=== PATIENT | female | born 1940 | race Caucasian/White ===

== ENCOUNTER 2017-11-02 11:45 | Emergency (ER) | payer OTHER ==
[2017-11-02 12:00] VITALS: BP 120/71; PULSE 74; TEMP 98.6; BMI 22.2
[2017-11-02] MEDS ORDERED: PHENAZOPYRIDINE HCL 100 MG TABLET (FP) PO ONE (12:27)
[2017-11-02] MEDS ORDERED: PHENAZOPYRIDINE HCL 100 MG TABLET (FP) ONE (12:27)
--- NOTE | 2017-11-02 12:29 | PDOC ---
History of Present Illness - General Chief Complaint: Urinary Problem Stated Complaint: POSSIBLE UTI Time Seen by Provider: 11/02/17 12:06 History Source: Patient Exam Limitations: No Limitations - History of Present Illness Travel History: No Initial Comments: 11/02/17 12:26 77 yr female with c/o 2 days urgency frequency and dysuria for 2 days. no feve no abd pain neg nvd. pt has had same symptoms in the past. Past History - Past Medical History Allergies/Adverse Reactions: Allergies Allergy/AdvReac Type Severity Reaction Status Date / Time No Known Allergies Allergy Verified 11/02/17 12:00 Home Medications: Ambulatory Orders Aspirin [ASA -] 81 mg PO DAILY #0 tab.chew 11/14/11 Timolol Maleate 15 ml OP DAILY 11/15/15 Cephalexin [Keflex] 500 mg PO BID #6 capsule 11/02/17 Phenazopyridine HCl [Pyridium] 200 mg PO TID #6 tablet 11/02/17 Simvastatin 20 mg PO ASDIR 11/02/17 Anemia: No Asthma: No Cancer: No Cardiac Disorders: No CVA: No COPD: No CHF: No Dementia: No Diabetes: No GI Disorders: Yes (HEMORRHIODS, DIVERTIUCLOSIS, POLYPS) Disorders: Yes (chronic UTI) HTN: No Hypercholesterolemia: Yes Liver Disease: No Seizures: No Thyroid Disease: No - Surgical History Abdominal Surgery: No Appendectomy: No Cardiac Surgery: No Cholecystectomy: No Lung Surgery: No Neurologic Surgery: No Orthopedic Surgery: No - Suicide/Smoking/Psychosocial Hx Smoking History: Never smoked Have you smoked in the past 12 months: No Hx Alcohol Use: No Drug/Substance Use Hx: No Substance Use Type: None Hx Substance Use Treatment: No Review of Systems - Review of Systems Able to Perform ROS?: Yes Is the patient limited Sammarinese proficient: No Constitutional: No: Symptoms Reported HEENTM: No: Symptoms Reported Respiratory: No: Symptoms reported Cardiac (ROS): No: Symptoms Reported ABD/GI: No: Symptoms Reported : Yes: Symptoms Reported Musculoskeletal: No: Symptoms Reported Integumentary: No: Symptoms Reported Neurological: No: Symptoms reported *Physical Exam - Vital Signs Last Vital Signs Temp Pulse Resp BP Pulse Ox 98.6 F 74 18 120/71 99 11/02/17 11:58 11/02/17 11:58 11/02/17 11:58 11/02/17 11:58 11/02/17 11:58 - Physical Exam General Appearance: Yes: Nourished, Appropriately Dressed HEENT: positive: EOMI, SHANNAN Gastrointestinal/Abdominal: positive: Normal Bowel Sounds, Flat, Soft, Tenderness (suprapubic ) Medical Decision Making - Medical Decision Making 11/02/17 12:27 cc: dysuria, urgency, frequency will send cultures treat for UTI *DC/Admit/Observation/Transfer Diagnosis at time of Disposition: Urinary tract infection Qualifiers: Urinary tract infection type: acute cystitis Hematuria presence: with hematuria Qualified Code(s): N30.01 - Acute cystitis with hematuria - Discharge Dispostion Disposition: HOME Condition at time of disposition: Good - Prescriptions Prescriptions: Cephalexin [Keflex] 500 mg PO BID #6 capsule Phenazopyridine HCl [Pyridium] 200 mg PO TID #6 tablet - Referrals Referrals: Rani Baugh MD [Primary Care Provider] - - Patient Instructions Printed Discharge Instructions: DI for Urinary Tract Infection (UTI) Additional Instructions: drink pleanty of water take the medications as prescribed follow with your doctor for follow up in one week or if any worsening symptoms - Post Discharge Activity
[2017-11-02 12:41] LABS: URINE APPEARANCE SLCLOUDY; URINE BILIRUBIN NEGATIVE (<2.0 mg/dL); URINE BLOOD 2+ (NEGATIVE); URINE COLOR LTYELLOW; URINE GLUCOSE (UA) NEGATIVE (NEGATIVE); URINE KETONE NEGATIVE (NEGATIVE); URINE NITRITE NEGATIVE (NEGATIVE); URINE PROTEIN NEGATIVE (NEGATIVE); URINE UROBILINOGEN NEGATIVE mg/dL (0.2-1.0)
[2017-11-02 12:46] LABS: URINE LEUK ESTERASE 3+ (NEGATIVE)
[2017-11-02 12:47] LABS: URINE MUCUS RARE
--- NOTE | 2017-11-04 07:20 | PDOC ---
Patient Follow-up (Call Back) - Post ED Follow - Up Condition at time of discharge: Good Disposition at time of original discharge: HOME Reason for Call Back: Abnwl. Microbiology (Urine cx preliminary shows lactose fermenting - bacilli. Pt on keflex. will await final report.)
== END 2017-11-02 13:26 | disposition home or self-care (01) ==
LOC: JERFT 11:45
DX: N30.01 Acute cystitis with hematuria (principal); E78.00 Pure hypercholesterolemia, unspecified; Z87.19 Personal history of other diseases of the digestive system
CPT/HCPCS: 81003; 81015; 87086; 87186; 99281-25

== ENCOUNTER 2020-02-05 16:23 | Inpatient (IN) | payer OTHER ==
[2020-02-05] MEDS ORDERED: ACETAMINOPHEN 500 MG TABLET (FP) PO ONE (17:02)
[2020-02-05] MEDS ORDERED: ACETAMINOPHEN 500 MG TABLET (FP) ONE (17:04)
--- NOTE | 2020-02-05 17:09 | PDOC ---
History of Present Illness - General Chief Complaint: Pain Stated Complaint: FALL Time Seen by Provider: 02/05/20 16:37 History Source: Patient Exam Limitations: No Limitations - History of Present Illness Initial Comments: 02/05/20 17:05 HISTORY OF PRESENT ILLNESS: 79-year-old woman presents emergency department for evaluation of left hip pain status post fall onto concrete. Patient reports she was shopping when something tipped over in her shopping cart causing her to grab onto the falling object knocking her to the ground and landing on her left hip and left elbow. Patient initially had no pain but now reports difficulty in ambulation. She reports the pain got worse after sitting in a car. No recent travel or sick contacts. PAST MEDICAL HISTORY: Denies past medical history SURGICAL HISTORY: Denies ALLERGIES: No known drug allergies REVIEW OF SYSTEMS General/Constitutional: Denies fever or chills. Denies weakness, weight change. HEENT: Denies change in vision. Denies ear pain or discharge. Denies sore throat. Cardiovascular: Denies chest pain or shortness of breath. Respiratory: Denies cough, wheezing, or hemoptysis. Gastrointestinal: Denies nausea, vomiting, diarrhea or constipation. Denies rectal bleeding. Genitourinary: Denies dysuria, frequency, or change in urination. Musculoskeletal: See HPI Skin and breasts: Denies rash or easy bruising. Neurologic: Denies headache, vertigo, loss of consciousness, or loss of sensation. Psychiatric: Denies depression or anxiety. Endocrine: Denies increased thirst. Denies abnormal weight change. Hematologic/Lymphatic: Denies anemia, easy bleeding, or history of blood clots. Allergic/Immunologic: Denies hives or skin allergy. Denies latex allergy. PHYSICAL EXAM General Appearance: Well-appearing, appropriately dressed. No apparent distress, no intoxication. Vascular Pulses: Dorsalis-Pedis (R): 2+, Dorsalis-Pedis (L): 2+ Musculoskeletal/Extremities: Normal inspection. Normal capillary refill. Pe lvis Stable. No CVA tenderness. No tenderness to extremities, pedal edema, swelling, erythema or deformity. Neurovascularly intact. Integumentary: Appropriate color, dry, warm. No cyanosis, erythema, jaundice or rash Past History - Medical History Allergies/Adverse Reactions: Allergies Allergy/AdvReac Type Severity Reaction Status Date / Time No Known Allergies Allergy Verified 02/05/20 16:36 Home Medications: Ambulatory Orders Timolol Maleate 15 ml OP DAILY 11/15/15 Simvastatin 20 mg PO ASDIR 11/02/17 Acetaminophen [Tylenol .Regular Strength -] 650 mg PO Q4H PRN tablet 02/07/20 Lidocaine 5% Patch [Lidoderm -] 1 patch TP DAILY #2 patch 02/07/20 Anemia: No Asthma: No Cancer: No Cardiac Disorders: No CVA: No COPD: No CHF: No Dementia: No Diabetes: No GI Disorders: Yes (HEMORRHIODS, DIVERTIUCLOSIS, POLYPS) Disorders: Yes (chronic UTI) HTN: No Hypercholesterolemia: Yes Liver Disease: No Seizures: No Thyroid Disease: No - Surgical History Abdominal Surgery: No Appendectomy: No Cardiac Surgery: No Cholecystectomy: No Lung Surgery: No Neurologic Surgery: No Orthopedic Surgery: No - Psycho-Social/Smoking History Smoking History: Never smoked Have you smoked in the past 12 months: No *Physical Exam - Vital Signs Last Vital Signs Temp Pulse Resp BP Pulse Ox 72 18 106/64 98 02/05/20 16:31 02/05/20 16:31 02/05/20 16:31 02/05/20 16:31 ED Treatment Course - LABORATORY CBC & Chemistry Diagram: 02/06/20 05:55 02/06/20 05:55 - RADIOLOGY Radiology Studies Ordered: Category Date Time Status HIP & PELVIS-LEFT [RAD] Stat Radiology 02/05/20 17:02 Ordered Medical Decision Making - Medical Decision Making 02/05/20 17:07 A/P: 79-year-old woman with left hip pain status post fall on concrete today No bony tenderness, deformity, crepitus or step-off is appreciated on palpation. Unable to bear weight on affected leg X-rays to rule out fracture Tylenol 1 g orally now Reassess 02/05/20 20:42 CT scan is read by imaging on-call: Fractures of the left superior and inferior pubic rami with adjacent soft tissue swelling. There are additional soft tissue inflammation changes lateral to the proximal left femur. Dedicated pelvic CT is recommended for complete evaluation of the pelvis. Diffuse degenerative changes. Colonic diverticula As patient is nonweightbearing I will admit the patient for orthopedic consultation in the morning and physical therapy evaluation. Dr. Espitia, the patient's primary doctor states she is not admitting to this hospital for the time being I should contact hospitalist. Microblog has been sent. 02/05/20 21:14 Case has been discussed with the hospitalist resident. Signout is been given the patient cannot be admitted until laboratory testing has been resulted. Patient to be admitted under Dr. Bobby to observation. Discharge - Discharge Information Problems reviewed: Yes Clinical Impression/Diagnosis: Fall Qualifiers: Encounter type: initial encounter Qualified Code(s): W19.XXXA - Unspecified fall, initial encounter Fracture of pubic ramus Qualifiers: Encounter type: initial encounter Laterality: left Condition: Stable - Admission Yes - Follow up/Referral - Patient Discharge Instructions - Post Discharge Activity
--- NOTE | 2020-02-05 22:13 | PN ---
Teaching Attending Note Name of Resident: Kojo Do ATTENDING PHYSICIAN STATEMENT I saw and evaluated the patient. I reviewed the resident's note and discussed the case with the resident. I agree with the resident's findings and plan as documented. SUBJECTIVE: 79yoF presents with history of HLD and glaucoma presents wtih left hip/leg pain and difficulty ambulating after a fall. She fell onto her left side while trying to prevent a heavy plant from falling. She was able to ambulate immediately afterwards with some discomfort but when she tried to walk down some steps the pain became unbearable so she presented to the ED. Denies head trauma, syncope. XR of the pelvis showed no acute findings but CT of the left leg was obtained due to continued pain and inability to bear weight showing left superior and inferior pubic rami fractures. Admitted for further management. OBJECTIVE: Vital Signs - 24 hr 02/05/20 16:31 Pulse Rate 72 Respiratory 18 Rate Blood Pressure 106/64 O2 Sat by Pulse 98 Oximetry (%) EXAM Gen: awake, alert, NAD CV: RRR, no MRG Resp: unlabored, CTAB Abd: Soft, NT, ND Ext: legs equal length. Left proximal movement limited by pain in hip/groin. Neuro: sensation intact, CN II-XII grossly intact Psych: AOx3, appropriate mood/affect Laboratory Results - last 24 hr 02/05/20 02/05/20 20:30 20:30 WBC 6.4 RBC 4.39 Hgb 12.2 Hct 37.4 MCV 85.2 MCH 27.8 MCHC 32.6 RDW 14.1 Plt Count 162 MPV 9.4 Absolute Neuts (auto) 4.3 Neutrophils % 66.6 Lymphocytes % 21.2 Monocytes % 8.6 Eosinophils % 2.5 Basophils % 1.1 Nucleated RBC % 0 Platelet Estimate Adequate Platelet Comment No clumping noted Sodium 139 Potassium 3.9 Chloride 105 Carbon Dioxide 28 Anion Gap 6 L BUN 16.2 Creatinine 0.7 Est GFR (CKD-EPI)AfAm 96.86 Est GFR (CKD-EPI)NonAf 83.57 Random Glucose 103 Calcium 9.6 Total Bilirubin 0.7 AST 20 ALT 23 Alkaline Phosphatase 70 Total Protein 7.0 Albumin 4.0 Imaging reviewed in chart ASSESSMENT AND PLAN: 79yoF presents with history of HLD and glaucoma presents wtih left hip/leg pain and difficulty ambulating after a fall, found to have pubic rami fractures. Left superior and inferior pubic rami fractures s/p mechanical fall - ortho consult in AM - further imaging deferred to ortho - pain control with Tylenol, lidocaine patches - PT consult HLD, glaucoma - continue home meds DVT ppx: Lovenox subq
[2020-02-05 22:54] LABS: BASO % 1.1 % (0-2.0); EOS % 2.5 % (0-4.5); HEMATOCRIT 37.4 % (32.4-45.2); HEMOGLOBIN 12.2 GM/dL (10.7-15.3); LYMPH % 21.2 % (8-40); MCH 27.8 pg (25.7-33.7); MCHC 32.6 g/dl (32.0-36.0); MEAN CELL VOLUME 85.2 fl (80-96); MONO % 8.6 % (3.8-10.2); NEUT % 66.6 % (42.8-82.8); RBC 4.39 M/mm3 (3.60-5.2); RDW 14.1 % (11.6-15.6); WHITE BLOOD COUNT 6.4 K/mm3 (4.0-10.0)
--- NOTE | 2020-02-05 23:15 | HP ---
CHIEF COMPLAINT: L hip pain PCP: Dr. Espitia HISTORY OF PRESENT ILLNESS: 79 y/o female with PMX of hyperlipidemia and glaucoma presenting to the ED for evaluation of L hip pay s/p fall onto concrete ground. Patient reports that she was shopping at [employer] when she went to grab a plant that was falling and lost her balance and fell onto the ground landing on her L hip and L elbow. Initially, the patient had no pain but now endorses difficulty with ambulating and with sitting. ER course was notable for: (1)CXR- no acute pathology (2)Lower Extremity CT- comminuted minimally displaced fracture involving the left supers pubic ramus, medial as well as the left inferior pubic ramus. The left hip joint is intact without gross evidence of fracture. However, note is made of the adjacent subcutaneous edema, laterally likely post traumatic. Diverticulosis coli in the mid sigmoid colon w/o evident of acute diverticulitis (3)Hip/pelvis x-ray- no acute pathology of the pelvis or L hip Recent Travel: PAST MEDICAL HISTORY: HLD, glaucoma PAST SURGICAL HISTORY: ovarian removal, 2 c-sections Social History: Smoking:denies Alcohol:occasional Drugs: denies Allergies No Known Allergies Allergy (Verified 02/05/20 16:36) HOME MEDICATIONS: Home Medications Medication Instructions Recorded Aspirin [ASA -] 81 mg PO DAILY #0 tab.chew 11/14/11 Timolol Maleate 15 ml OP DAILY 11/15/15 Cephalexin [Keflex] 500 mg PO BID #6 capsule 11/02/17 Phenazopyridine HCl [Pyridium] 200 mg PO TID #6 tablet 11/02/17 Simvastatin 20 mg PO ASDIR 11/02/17 REVIEW OF SYSTEMS CONSTITUTIONAL: Absent: fever, chills, diaphoresis, generalized weakness, malaise, loss of appetite, weight change HEENT: Absent: rhinorrhea, nasal congestion, throat pain, throat swelling, difficulty swallowing, mouth swelling, ear pain, eye pain, visual changes CARDIOVASCULAR: Absent: chest pain, syncope, palpitations, irregular heart rate, lightheadedness, peripheral edema RESPIRATORY: Absent: cough, shortness of breath, dyspnea with exertion, orthopnea, wheezing, stridor, hemoptysis GASTROINTESTINAL: Absent: abdominal pain, abdominal distension, nausea, vomiting, diarrhea, constipation, melena, hematochezia GENITOURINARY: Absent: dysuria, frequency, urgency, hesitancy, hematuria, flank pain, genital pain MUSCULOSKELETAL: + arthralgia, + left hip pain Absent: myalgia, joint swelling, back pain, neck pain SKIN: + bruise on left elbow Absent: rash, itching, pallor HEMATOLOGIC/IMMUNOLOGIC: Absent: easy bleeding, easy bruising, lymphadenopathy, frequent infections ENDOCRINE: Absent: unexplained weight gain, unexplained weight loss, heat intolerance, cold intolerance NEUROLOGIC: Absent: headache, focal weakness or paresthesias, dizziness, unsteady gait, seizure, mental status changes, bladder or bowel incontinence PSYCHIATRIC: Absent: anxiety, depression, suicidal or homicidal ideation, hallucinations. PHYSICAL EXAMINATION Vital Signs - 24 hr 02/05/20 16:31 Pulse Rate 72 Respiratory 18 Rate Blood Pressure 106/64 O2 Sat by Pulse 98 Oximetry (%) GENERAL: AAOx3, in no acute distress HEENT: NCAT, PERRLA, EOMI, sclera anicteric, conjunctiva clear, oropharynx clear w/o exudates. MMM. NECK: Normal ROM, supple, no lymphadenopathy, JVD, or masses LUNGS: CTABL no wheezes/ rhonchi/ rales. No distress, speaks in full sentences. No increased work of breathing. HEART: RRR, normal S1 S2, no M/R/G, peripheral pulses 2+ and equal b/l ABDOMEN: Soft, NTND, + BS. No guarding or rebound. No hepatomegaly or splenomegaly. MSK: ROM WNL EXTREMITIES: Normal inspection. No peripheral edema. No clubbing or cyanosis. + bruising on L elbow NEUROLOGICAL: CN II-XII intact. Normal speech, normal gait, no sensory defects in upper and lower extremities. Increased pain in left hip abduction, adduction, hip flexion. Most pain was found in L hip abduction SKIN: Warm, Dry, normal turgor, no rashes or lesions noted ASSESSMENT/PLAN: 79 y/o female with PMx hyperlipidemia and glaucoma presenting to the ED with L help pain. Admitted for pubic Bone Fracture. #Pubic Bone Fracture -X-ray no acute pelvic or hip pathology -CT-comminuted minimally displaced fracture involving the left supers pubic rami, medial as well as the left inferior pubic ramus. -Ortho Consulted -f/u ortho reccs -Patient on bedrest to limit mobility that makes her pain worse -IV Tylenol PRN -PT consulted -Lidocaine patch PRN #HLD -continue home meds when appropriate #FEN -no standing fluids -monitor lytes, replete PRN -regular diet #Prophylaxis -HELD until ortho reccs dispo-continue to monitor in m/s Family Medical History Family History: As Documented Visit type - Medication Review Med list reviewed for High Risk Meds patients 65 and older: Yes - Emergency Visit Emergency Visit: Yes ED Registration Date: 02/05/20 Care time: The patient presented to the Emergency Department on the above date and was hospitalized for further evaluation of their emergent condition. - New Patient This patient is new to me today: Yes Date on this admission: 02/06/20 - Critical Care Critical Care patient: No ATTENDING PHYSICIAN STATEMENT I saw and evaluated the patient. I reviewed the resident's note and discussed the case with the resident. I agree with the resident's findings and plan as documented. SUBJECTIVE: OBJECTIVE: ASSESSMENT AND PLAN:
[2020-02-05 23:26] LABS: BILIRUBIN,TOTAL 0.7 mg/dL (0.2-1); BLOOD UREA NITROGEN 16.2 mg/dL (7-18); CALCIUM 9.6 mg/dL (8.5-10.1); CREATININE 0.7 mg/dL (0.55-1.3); POTASSIUM 3.9 mmol/L (3.5-5.1)
[2020-02-06 02:15] LABS: MEAN PLT VOLUME 9.4 fl (7.5-11.1); PLATELET COUNT 162 K/MM3 (134-434); PLATELET ESTIMATE ADEQUATE
[2020-02-06 07:12] LABS: BASO % 0.8 % (0-2.0); EOS % 4.4 % (0-4.5); HEMATOCRIT 38.6 % (32.4-45.2); HEMOGLOBIN 12.5 GM/dL (10.7-15.3); LYMPH % 17.1 % (8-40); MCH 27.3 pg (25.7-33.7); MCHC 32.3 g/dl (32.0-36.0); MEAN CELL VOLUME 84.4 fl (80-96); MEAN PLT VOLUME 10.3 fl (7.5-11.1); MONO % 9.7 % (3.8-10.2); PLATELET COUNT 164 K/MM3 (134-434); RBC 4.57 M/mm3 (3.60-5.2); RDW 14.1 % (11.6-15.6); WHITE BLOOD COUNT 5.4 K/mm3 (4.0-10.0)
[2020-02-06 07:17] LABS: INR 1.02 (0.83-1.09)
[2020-02-06 07:39] LABS: BLOOD UREA NITROGEN 14.1 mg/dL (7-18); CALCIUM 9.4 mg/dL (8.5-10.1); CREATININE 0.6 mg/dL (0.55-1.3); MAGNESIUM 2.3 mg/dL (1.8-2.4); PHOSPHOROUS 2.1 mg/dL (2.5-4.9); POTASSIUM 3.8 mmol/L (3.5-5.1)
[2020-02-06] MEDS ORDERED: ACETAMINOPHEN 325 MG TABLET (FP) ONE (09:48)
[2020-02-06] MEDS ORDERED: LIDOCAINE 5% TOPICAL PATCH ONE (09:48)
[2020-02-06] MEDS: LIDOCAINE 5% TOPICAL PATCH TP SCH (09:57)
[2020-02-06] MEDS: ACETAMINOPHEN 325 MG TABLET (FP) PO PRN ×2 (09:57→12:52)
[2020-02-06 10:21] LABS: PH,URINE 6.5 (5.0-8.0); URINE APPEARANCE CLEAR; URINE BILIRUBIN NEGATIVE (NEGATIVE); URINE COLOR YELLOW; URINE GLUCOSE (UA) NEGATIVE (NEGATIVE); URINE KETONE NEGATIVE (NEGATIVE); URINE LEUK ESTERASE NEGATIVE (NEGATIVE); URINE NITRITE NEGATIVE (NEGATIVE); URINE PROTEIN NEGATIVE (NEGATIVE); URINE UROBILINOGEN 0.2 mg/dL (0.2-1.0)
--- NOTE | 2020-02-06 12:42 | EKG ---
Test Reason : Blood Pressure : / mmHG Vent. Rate : 065 BPM Atrial Rate : 065 BPM P-R Int : 166 ms QRS Dur : 084 ms QT Int : 406 ms P-R-T Axes : 052 -08 020 degrees QTc Int : 422 ms NORMAL SINUS RHYTHM NORMAL ECG WHEN COMPARED WITH ECG OF 05-NOV-2011 09:50, NO SIGNIFICANT CHANGE WAS FOUND Confirmed by Guerrero Mckeon ([id number]) on 02/06/2020 12:41:27 PM Referred By: Confirmed By:Guerrero Mckeon
--- NOTE | 2020-02-06 12:42 | PN ---
Physical Exam: SUBJECTIVE: Patient seen and examined Is comfortable has minimal amount of pain has not required any stronger narcotic pain medication. She denies any other symptoms. OBJECTIVE: Vital Signs Period Temp Pulse Resp BP Sys/Fleming Pulse Ox Last 24 Hr 97.6 F-98.3 F 68-72 18-19 106-114/63-64 98-98 Patient is comfortable HEENT normal Neck supple no JVD Lungs clear no wheezing Abdomen nontender no organomegaly bowel sounds normal Extremities no edema no cyanosis normal pulses Neurologically he is alert awake oriented, nonfocal Skin no rash noted Heart examination is normal Laboratory Results - last 24 hr 02/05/20 02/05/20 02/06/20 20:30 20:30 05:55 WBC 6.4 5.4 RBC 4.39 4.57 Hgb 12.2 12.5 Hct 37.4 38.6 MCV 85.2 84.4 MCH 27.8 27.3 MCHC 32.6 32.3 RDW 14.1 14.1 Plt Count 162 164 MPV 9.4 10.3 Absolute Neuts (auto) 4.3 3.7 Neutrophils % 66.6 68.0 Lymphocytes % 21.2 17.1 Monocytes % 8.6 9.7 Eosinophils % 2.5 4.4 Basophils % 1.1 0.8 Nucleated RBC % 0 0 Platelet Estimate Adequate Platelet Comment No clumping noted PT with INR INR Sodium 139 Potassium 3.9 Chloride 105 Carbon Dioxide 28 Anion Gap 6 L BUN 16.2 Creatinine 0.7 Est GFR (CKD-EPI)AfAm 96.86 Est GFR (CKD-EPI)NonAf 83.57 Random Glucose 103 Calcium 9.6 Phosphorus Magnesium Total Bilirubin 0.7 AST 20 ALT 23 Alkaline Phosphatase 70 Total Protein 7.0 Albumin 4.0 Urine Color Urine Appearance Urine pH Ur Specific [place] Urine Protein Urine Glucose (UA) Urine Ketones Urine Blood Urine Nitrite Urine Bilirubin Urine Urobilinogen Ur Leukocyte Esterase 02/06/20 02/06/20 02/06/20 05:55 05:55 10:00 WBC RBC Hgb Hct MCV MCH MCHC RDW Plt Count MPV Absolute Neuts (auto) Neutrophils % Lymphocytes % Monocytes % Eosinophils % Basophils % Nucleated RBC % Platelet Estimate Platelet Comment PT with INR 12.00 INR 1.02 Sodium 139 Potassium 3.8 Chloride 105 Carbon Dioxide 30 Anion Gap 5 L BUN 14.1 Creatinine 0.6 Est GFR (CKD-EPI)AfAm 101.90 Est GFR (CKD-EPI)NonAf 87.92 Random Glucose 99 Calcium 9.4 Phosphorus 2.1 L Magnesium 2.3 Total Bilirubin AST ALT Alkaline Phosphatase Total Protein Albumin Urine Color Yellow Urine Appearance Clear Urine pH 6.5 Ur Specific [place] 1.009 L Urine Protein Negative Urine Glucose (UA) Negative Urine Ketones Negative Urine Blood Negative Urine Nitrite Negative Urine Bilirubin Negative Urine Urobilinogen 0.2 Ur Leukocyte Esterase Negative Active Medications Generic Name Dose Route Start Last Admin Trade Name Freq PRN Reason Stop Dose Admin Acetaminophen 650 mg 02/05/20 23:15 02/06/20 09:57 Tylenol - PO 650 mg Q4H PRN Administration PAIN LEVEL 6-10 Lidocaine 1 patch 02/06/20 10:00 02/06/20 09:57 Lidoderm Patch - TP 1 patch DAILY [facility] Administration Miscellaneous 1 each 02/06/20 22:00 Lidoderm Patch Removal MC [email or web address] [facility] ASSESSMENT/PLAN: 79yoF presents with history of HLD and glaucoma presents wtih left hip/leg pain and difficulty ambulating after a fall, found to have pubic rami fractures Patient is comfortable Ortho consult has been requested. Physical therapy has been requested DVT prophylaxis Lovenox Will restart her home medication for hypertension and glaucoma discussed with the patient in detail about she might going to need rehabilitation for fracture of the pelvis. Visit type - Emergency Visit Emergency Visit: Yes ED Registration Date: 02/05/20 Care time: The patient presented to the Emergency Department on the above date and was hospitalized for further evaluation of their emergent condition. - New Patient This patient is new to me today: Yes Date on this admission: 02/06/20 - Critical Care Critical Care patient: No - Discharge Referral Referred to [facility] Med P.C[facility] No - Medication Review Med list reviewed for High Risk Meds patients 65 and older: Yes
[2020-02-06] MEDS ORDERED: PATIENT'S OWN MEDICATION (NON-FORMULARY) (Simvastatin [Simvastatin] 20 MG) PO SCH (12:45)
--- NOTE | 2020-02-06 13:03 | PN ---
Progress Note (short form) - Note Progress Note: Chart reviewed. Full consult to follow. Minimally displaced ramus fractures. Can WBAT, start PT.
[2020-02-06 16:34] VITALS: BMI 23.6
[2020-02-06] MEDS: LIDOCAINE PATCH REMOVAL MC SCH (21:16)
[2020-02-06] MEDS: ATORVASTATIN CA 10 MG TABLET (FP) PO SCH (21:16)
--- NOTE | 2020-02-06 23:37 | CON.ORTH ---
Consult Consult Specialty:: orthopedics Reason for Consultation:: pelvic fractures - History of Present Illness Chief Complaint: L hip pain History of Present Illness: 79y suffered fall trying to catch falling vase noted pain after came to ER due to worsening pain found to have pubic rami fxs notes pain only in hip area no pain elsewhere no numbness or tingling no previous injuries to this area - History Source History Provided By: Patient, Medical Record Limitations to Obtaining History: No Limitations - Past Medical History ...: No - Alcohol/Substance Use Hx Alcohol Use: No - Smoking History Smoking history: Never smoked Have you smoked in the past 12 months: No Home Medications - Allergies Allergies/Adverse Reactions: Allergies Allergy/AdvReac Type Severity Reaction Status Date / Time No Known Allergies Allergy Verified 02/05/20 16:36 - Home Medications Home Medications: Ambulatory Orders Timolol Maleate 15 ml OP DAILY 11/15/15 Simvastatin 20 mg PO ASDIR 11/02/17 Review of Systems - Review of Systems Constitutional: denies: Chills, Diaphoresis, Fever Eyes: denies: Blind Spots, Blurred Vision, Double Vision HENT: denies: Difficult Swallowing Cardiovascular: denies: Chest Pain, Edema, Palpitations Physical Exam for Ortho Vital Signs: Vital Signs Temperature 98 F 02/06/20 16:24 Pulse Rate 80 02/06/20 16:24 Respiratory Rate 20 02/06/20 16:24 Blood Pressure 114/74 02/06/20 16:24 O2 Sat by Pulse Oximetry (%) 97 02/06/20 20:44 Constitutional: Yes: Well Nourished, No Distress, Calm Cardiovascular: Yes: Regular Rate and Rhythm Respiratory: Yes: Regular Gastrointestinal: Yes: Soft. No: Tenderness Labs: CBC, BMP 02/06/20 05:55 02/06/20 05:55 INR, PTT INR 1.02 (0.83-1.09) 02/06/20 05:55 - Lower Extremity Pelvis: Yes: Left, Limited ROM (of hip joint), Swelling (mild). No: Abrasion, Deformity, Ecchymosis, Erythema Knee: Yes: Exam WNL, Left Ankle: Yes: Exam WNL, Left - Affected Extremity Motor Strength: 5/5: Left Leg Peripheral Pulses: 2+ Left Doralis Pedis Neuro/Vascular Assessment: Yes: Warm, [place], Normal Sensation Imaging - Results Cat Scan: Report Reviewed, Image Reviewed (Minimally displaced pubic ramus fractures) Assessment/Plan L pubic ramus fractures I reviewed today's findings with Francisco advised the fractures are a stable pattern can wbat start PT if unable to go home, consider short stay in SNF follow up 2 weeks with new films
[2020-02-07] MEDS ORDERED: PT OWN MED DRAWER 7, Y5N ONE (09:58)
[2020-02-07] MEDS: LIDOCAINE 5% TOPICAL PATCH TP SCH (09:59)
[2020-02-07] MEDS ORDERED: TIMOLOL 0.5% OPHTHALMIC SOL 5 ML BOTTLE OU SCH (10:00)
--- NOTE | 2020-02-07 10:26 | PN ---
Physical Exam: SUBJECTIVE: Patient seen and examined. No acute events overnight. Pt stated pain is absent when she is not moving. Denied fevers, chills, chest pain, shortness of breath, nausea, vomiting. Last BM was 2 days ago. Endorsed to good appetite. OBJECTIVE: Vital Signs Period Temp Pulse Resp BP Sys/Fleming Pulse Ox Last 24 Hr 98 F-98.3 F 66-81 20-20 108-117/62-74 95-100 CBC, BMP 02/06/20 05:55 02/06/20 05:55 Active Medications Acetaminophen (Tylenol -) 650 mg PO Q4H PRN PRN Reason: PAIN LEVEL 6-10 Last Admin: 02/06/20 12:52 Dose: 650 mg Documented by: Atorvastatin Calcium (Lipitor -) 10 mg PO HS [facility] Last Admin: 02/06/20 21:16 Dose: 10 mg Documented by: Lidocaine (Lidoderm Patch -) 1 patch TP DAILY [facility] Last Admin: 02/07/20 09:59 Dose: 1 patch Documented by: Miscellaneous (Lidoderm Patch Removal) 1 each MC DAILY@2200 [facility] Last Admin: 02/06/20 21:16 Dose: 1 each Documented by: Timolol Maleate (Timoptic 0.5%) 1 drop OU DAILY [facility] Last Admin: 02/07/20 11:35 Dose: 1 drop Documented by: CXR; 02/05/2020 No acute chest pathology Lower extremity CT; 02/05/2020 Comminuted minimally displaced fracture involving the left superior pubic ramus, medially as well as the left inferior pubic ramus. The left hip joint is intact without gross evidence of fracture. However, note is made of the adjacent subcutaneous edema, laterally likely posttraumatic. Diverticulosis coli in the mid sigmoid colon without evidence of acute diverticulitis Hip/Pelvis x-ray; 02/05/2020 No acute pathology. ASSESSMENT/PLAN: 79 year old F w/ PMH HLD and glaucoma presented to ED after a mechanical fall. Pt complained of L hip pain and was admitted for a minimally displaced fracture of L superior pubic ramus & L inferior pubic ramus. L pubic ramus fracture -CT Lower extremity as above. -Ortho consulted. Fractures stable. Recommended WBAT. If unstable to go home, can consider short stay in SNF. F/u in 2 weeks with new films. - PT eval. Pt performed exercise and was able to ambulate to bathroom with rolling walker. Recommended discharge home with home PT and rolling walker. - Pending rehabilitation caseworker discussion with daughter regarding plan. - c/w lidocaine patch, acetaminophen 650 q4H PRN for pain HLD - c/w atorvastatin 10 qHS Glaucoma -c/w home dose timolol maleate FEN -No standing fluids. -monitor and replete electrolytes as needed -Regular diet Ppx -DVT: early ambulation Dispo: Discharge home with home PT and rolling walker. Visit type - Emergency Visit Emergency Visit: Yes ED Registration Date: 02/05/20 Care time: The patient presented to the Emergency Department on the above date and was hospitalized for further evaluation of their emergent condition. - New Patient This patient is new to me today: Yes Date on this admission: 02/07/20 - Critical Care Critical Care patient: No - Medication Review Med list reviewed for High Risk Meds patients 65 and older: Yes ATTENDING PHYSICIAN STATEMENT I saw and evaluated the patient. I reviewed the resident's note and discussed the case with the resident. I agree with the resident's findings and plan as documented. SUBJECTIVE: OBJECTIVE: ASSESSMENT AND PLAN:
[2020-02-07] MEDS: TIMOLOL 0.5% OPHTHALMIC SOL 5 ML BOTTLE OU SCH (11:35)
--- NOTE | 2020-02-07 12:17 | PN ---
Teaching Attending Note Name of Resident: Karely Fuller ATTENDING PHYSICIAN STATEMENT I saw and evaluated the patient. I reviewed the resident's note and discussed the case with the resident. I agree with the resident's findings and plan as documented. SUBJECTIVE: OBJECTIVE: ASSESSMENT AND PLAN: 79yo female who presents with history of HLD and glaucoma presents with left hip/leg pain and difficulty ambulating after a fall, found to have pubic rami fractures # Ortho consult recommends weight bearing as tolerates: non-surgical management Physical therapy has been requested DVT prophylaxis SQ Lovenox # HTN Continue with meds # Glaucoma -continue with home meds # DISPO- Discharge with home PT/needs rolling walker
[2020-02-07] MEDS: ATORVASTATIN CA 10 MG TABLET (FP) PO SCH (21:17)
[2020-02-07] MEDS: LIDOCAINE PATCH REMOVAL MC SCH (21:19)
[2020-02-07] MEDS ORDERED: SIMVASTATIN 20 MG PO SCH (22:45)
[2020-02-08] MEDS: LIDOCAINE 5% TOPICAL PATCH TP SCH (09:05)
[2020-02-08] MEDS: TIMOLOL 0.5% OPHTHALMIC SOL 5 ML BOTTLE OU SCH (09:05)
[2020-02-08 12:45] LABS: BLOOD UREA NITROGEN 19.4 mg/dL (7-18); CALCIUM 10.1 mg/dL (8.5-10.1); CREATININE 0.7 mg/dL (0.55-1.3); POTASSIUM 4.5 mmol/L (3.5-5.1)
--- NOTE | 2020-02-08 13:18 | PN ---
Teaching Attending Note Name of Resident: Kojo Do ATTENDING PHYSICIAN STATEMENT I saw and evaluated the patient. I reviewed the resident's note and discussed the case with the resident. I agree with the resident's findings and plan as documented. SUBJECTIVE: Patient is comfortable with NAD. wants to go home , waiting for PT evaluation. OBJECTIVE: Vital Signs Temperature 98.3 F 02/08/20 10:00 Pulse Rate 90 02/08/20 10:00 Respiratory Rate 20 02/08/20 10:00 Blood Pressure 95/56 L 02/08/20 10:00 O2 Sat by Pulse Oximetry (%) 99 02/08/20 10:00 PE: per resident's note CBCD WBC 5.4 K/mm3 (4.0-10.0) 02/06/20 05:55 RBC 4.57 M/mm3 (3.60-5.2) 02/06/20 05:55 Hgb 12.5 GM/dL (10.7-15.3) 02/06/20 05:55 Hct 38.6 % (32.4-45.2) 02/06/20 05:55 MCV 84.4 fl (80-96) 02/06/20 05:55 MCHC 32.3 g/dl (32.0-36.0) 02/06/20 05:55 RDW 14.1 % (11.6-15.6) 02/06/20 05:55 Plt Count 164 K/MM3 (134-434) 02/06/20 05:55 MPV 10.3 fl (7.5-11.1) 02/06/20 05:55 CMP Sodium 139 mmol/L (136-145) 02/08/20 11:35 Potassium 4.5 mmol/L (3.5-5.1) 02/08/20 11:35 Chloride 106 mmol/L (98-107) 02/08/20 11:35 Carbon Dioxide 29 mmol/L (21-32) 02/08/20 11:35 Anion Gap 4 MMOL/L (8-16) L 02/08/20 11:35 BUN 19.4 mg/dL (7-18) H 02/08/20 11:35 Creatinine 0.7 mg/dL (0.55-1.3) 02/08/20 11:35 Random Glucose 104 mg/dL (74-106) 02/08/20 11:35 Calcium 10.1 mg/dL (8.5-10.1) 02/08/20 11:35 Total Bilirubin 0.7 mg/dL (0.2-1) 02/05/20 20:30 AST 20 U/L (15-37) 02/05/20 20:30 ALT 23 U/L (13-61) 02/05/20 20:30 Alkaline Phosphatase 70 U/L (45-117) 02/05/20 20:30 Total Protein 7.0 g/dl (6.4-8.2) 02/05/20 20:30 Albumin 4.0 g/dl (3.4-5.0) 02/05/20 20:30 Current Medications Generic Name Dose Route Start Last Admin Trade Name Freq PRN Reason Stop Dose Admin Acetaminophen 650 mg 02/05/20 23:15 02/06/20 12:52 Tylenol - PO 650 mg Q4H PRN Administration PAIN LEVEL 6-10 Lidocaine 1 patch 02/06/20 10:00 02/08/20 09:05 Lidoderm Patch - TP 1 patch DAILY [facility] Administration Miscellaneous 1 each 02/06/20 22:00 02/07/20 21:19 Lidoderm Patch Removal MC Not Given DAILY@2200 [facility] Patient's Own 20 mg 02/07/20 22:45 02/07/20 23:35 Medication ( PO 20 mg Simvastatin [ HS [facility] Administration Simvastatin] 20 Mg) Timolol Maleate 1 drop 02/07/20 10:00 02/08/20 09:05 Timoptic 0.5% OU 1 drop DAILY [facility] Administration Home Medications Medication Instructions Recorded Timolol Maleate 15 ml OP DAILY 11/15/15 Simvastatin 20 mg PO ASDIR 11/02/17 Acetaminophen [Tylenol .Regular 650 mg PO Q4H PRN tablet 02/07/20 Strength -] Lidocaine 5% Patch [Lidoderm -] 1 patch TP DAILY #2 patch 02/07/20 ASSESSMENT AND PLAN: 79yo female who presents with history of HLD and glaucoma presents with left hip/leg pain and difficulty ambulating after a fall, found to have pubic rami fractures # L pubic ramus fractures: the fractures are a stable pattern, evaluated by ortho, ok to send patient home. can wbat, PT with [facility] dc patient home
[2020-02-08 13:34] VITALS: BP 109/68; PULSE 89; TEMP 98.1
--- NOTE | 2020-02-08 13:39 | DS ---
Physical Exam: SUBJECTIVE: Patient seen and examined at bedside. No acute events reported overnight. This morning the patient has no concerns or complaints. OBJECTIVE: Vital Signs Period Temp Pulse Resp BP Sys/Fleming Pulse Ox Last 24 Hr 98.1 F-98.4 F 72-100 20-20 95-115/56-68 94-99 PHYSICAL EXAM GENERAL: AAOx3, in no acute distress HEENT: NCAT, PERRLA, EOMI, sclera anicteric, conjunctiva clear, oropharynx clear w/o exudates. MMM. NECK: Normal ROM, supple, no lymphadenopathy, JVD, or masses LUNGS: CTABL no wheezes/ rhonchi/ rales. No distress, speaks in full sentences. No increased work of breathing. HEART: RRR, normal S1 S2, no M/R/G, peripheral pulses 2+ and equal b/l ABDOMEN: Soft, NTND, + BS. No guarding or rebound. No hepatomegaly or splenomegaly. MSK: ROM WNL EXTREMITIES: Normal inspection. No peripheral edema. No clubbing or cyanosis. + bruising on L elbow NEUROLOGICAL: CN II-XII intact. Normal speech, normal gait, no sensory defects in upper and lower extremities. Increased pain in left hip abduction, adduction, hip flexion. Most pain was found in L hip abduction SKIN: Warm, Dry, normal turgor, no rashes or lesions noted LABS Laboratory Results - last 24 hr CBC, BMP 02/06/20 05:55 02/08/20 11:35 02/08/20 11:35 Sodium 139 Potassium 4.5 Chloride 106 Carbon Dioxide 29 Anion Gap 4 L BUN 19.4 H Creatinine 0.7 Est GFR (CKD-EPI)AfAm 96.86 Est GFR (CKD-EPI)NonAf 83.57 Random Glucose 104 Calcium 10.1 HOSPITAL COURSE: 79 year old F w/ PMH HLD and glaucoma presented to ED after a mechanical fall. Pt complained of L hip pain and was admitted for a minimally displaced fracture of L superior pubic ramus & L inferior pubic ramus. CT done upon admission showed a comminuted minimally displaced fracture involving the left superior pubic ramus, medially as well as the left inferior pubic ramus. Ortho was consulted who recommended PT and a walker and for the patient to be managed outpatient. Patient received lidocaine patches and acetaminophen 650 for pain control. Patient was restarted on her home meds atorvastatin 10 mg and timolol eye drops during her stay. Patient was on a regular diet and encouraged for early ambulation during her stay. Date of Admission:02/05/20 CXR; 02/05/2020 No acute chest pathology Lower extremity CT; 02/05/2020 Comminuted minimally displaced fracture involving the left superior pubic ramus, medially as well as the left inferior pubic ramus. The left hip joint is intact without gross evidence of fracture. However, note is made of the adjacent subcutaneous edema, laterally likely posttraumatic. Diverticulosis coli in the mid sigmoid colon without evidence of acute diverticulitis Hip/Pelvis x-ray; 02/05/2020 No acute pathology. Date of Discharge: 02/08/20 Minutes to complete discharge: 36 Discharge Summary Problems reviewed: Yes Reason For Visit: FRACTURE OF PUBIC RAMUS Current Active Problems Fall (Acute) Fracture of pubic ramus (Acute) Condition: Stable - Instructions Diet, Activity, Other Instructions: Your visit: You were admitted to the hospital for left hip pain after a fall. We did imaging of your chest, legs, hip and pelvis. You were found to have a fracture in your pubic bone and swelling in the surrounding area. Your imaging of your chest showed no concerning findings. You were treated with pain medication with improvement of your symptoms. You were able to walk with physical therapy today. As per the Orthopedic surgeon who saw you in the hospital, Dr. Bergeron, you can bear weight on your left side as you tolerate. Additional Image findings: Imaging of your legs also showed some out-pouching of your colon without any evidence of inflammation. You should follow up with your primary care doctor if you experience any abdominal symptoms. Medications changes: -Please continue to take apply Lidocaine patch as needed (needs to be removed after [address] 1 patch at 8 AM and take it off at 8 PM. Please make sure the patch is applied on intact skin. -You may take over the counter Acetaminophen 650 mg every 6 hours as needed for pain -continue to take all other home medications as prescribed. Follow up: - Please follow-up with your Orthopedic surgeon, Dr. Kadeem Bergeron, in 2 weeks. - Visit with your Primary Care Provider, Dr. Baugh, in 2 weeks. You will need to do repeat X-ray of your pelvis in 2 weeks to monitor your fracture. Additional Instructions: -You are being discharged to your home. You will receive home physical therapy as well as a rolling walker to help you walk. -Please return to the Emergency Department if you experience worsening pain, fevers, chills, shortness of breath, or chest pain, or if you experience any worsening, new or concerning symptoms. Referrals: Kadeem Bergeron MD [Staff Physician] - 2 Weeks Rani Baugh MD [Primary Care Provider] - 2 Weeks Disposition: HOME - Home Medications Comprehensive Discharge Medication List: Ambulatory Orders Timolol Maleate 15 ml OP DAILY 11/15/15 Simvastatin 20 mg PO ASDIR 11/02/17 Lidocaine 5% Patch [Lidoderm -] 1 patch TP DAILY #30 patch 02/08/20 This patient is new to me today: No Emergency Visit: No Critical Care patient: No - Discharge Referral Referred to [facility] No ATTENDING PHYSICIAN STATEMENT I saw and evaluated the patient. I reviewed the resident's note and discussed the case with the resident. I agree with the resident's findings and plan as documented. SUBJECTIVE: OBJECTIVE: ASSESSMENT AND PLAN:
[2020-02-08] MEDS ORDERED: PT OWN MED DRAWER 7, Y5N ONE (15:12)
== END 2020-02-08 15:31 | disposition home health service (06) | DRG 536 ==
LOC: JERFT 16:23 → JER 16:23 → JERBED 23:25 → J8W 02-06 16:47
PROVIDERS: ADMIT Hospitalist; ATTEND Internal Medicine
DX: S32.592A Other specified fracture of left pubis, initial encounter for closed fracture (principal); E78.5 Hyperlipidemia, unspecified; H40.9 Unspecified glaucoma; I10 Essential (primary) hypertension; W19.XXXA Unspecified fall, initial encounter; Y93.9 Activity, unspecified; Y92.89 Other specified places as the place of occurrence of the external cause; Y99.9 Unspecified external cause status
CPT/HCPCS: 36415; 71045-TC-FY; 73523-TC-FY; 73700-TC-RT; 80048; 80053; 81003; 83735; 84100; 85025; 85610; 93005; 93010; 97116-GP; 97161-GP; 99285-25; U0003

== ENCOUNTER 2023-01-23 10:07 | Inpatient (IN) | payer OTHER ==
[2023-01-23 10:12] VITALS: BMI 23.2
[2023-01-23] MEDS ORDERED: SODIUM CHLORIDE 0.9% 500 ML INFUS.BAG IV ONE (11:29)
[2023-01-23] MEDS ORDERED: ACETAMINOPHEN 1000 MG/100 ML BAG IVPB ONE (11:30)
[2023-01-23 11:46] LABS: BASO % 0.9 % (0-2.0); EOS % 0.4 % (0-4.5); HEMATOCRIT 39.3 % (32.4-45.2); HEMOGLOBIN 12.7 GM/dL (10.7-15.3); LYMPH % 10.8 % (8-40); MCH 27.3 pg (25.7-33.7); MCHC 32.3 g/dl (32.0-36.0); MEAN CELL VOLUME 84.7 fl (80-96); MEAN PLT VOLUME 10.3 fl (7.5-11.1); MONO % 15.4 % (3.8-10.2); NEUT % 72.5 % (42.8-82.8); PLATELET COUNT 151 10^3/uL (134-434); RBC 4.63 M/mm3 (3.60-5.2); WHITE BLOOD COUNT 5.6 K/mm3 (4.0-10.0)
[2023-01-23] MEDS ORDERED: ACETAMINOPHEN INJECTION 100 ML IVPB ONE (12:05)
[2023-01-23 12:12] LABS: ALBUMIN 3.7 g/dl (3.4-5.0); CALCIUM 9.9 mg/dL (8.5-10.1)
[2023-01-23 12:13] LABS: BLOOD UREA NITROGEN 18.6 mg/dL (7-18)
[2023-01-23 12:15] LABS: CREATININE 0.8 mg/dL (0.55-1.3)
[2023-01-23 12:17] LABS: BILIRUBIN,TOTAL 0.9 mg/dL (0.2-1); TOT PROT 7.2 g/dl (6.4-8.2)
[2023-01-23] MEDS ORDERED: guaiFENesin 200 MG/10 ML 10 ML UNIT-DOSE CUPS PO PRN (15:02)
[2023-01-23] MEDS ORDERED: BENZOCAINE/MENTH/CETYLPYRD CL 1 EACH LOZENGE MM PRN (15:02)
[2023-01-23] MEDS ORDERED: REMDESIVIR 200 MG in SODIUM CHLORIDE 250 ML IVPB ONE (15:03)
[2023-01-23] MEDS: ATORVASTATIN CA 10 MG TABLET (FP) PO SCH (22:09)
[2023-01-24 07:24] VITALS: RESP 18
[2023-01-24 08:32] LABS: HEMATOCRIT 36.6 % (32.4-45.2); HEMOGLOBIN 11.5 GM/dL (10.7-15.3); MCH 26.8 pg (25.7-33.7); MCHC 31.5 g/dl (32.0-36.0); MEAN CELL VOLUME 85.1 fl (80-96); MEAN PLT VOLUME 9.4 fl (7.5-11.1); PLATELET COUNT 135 10^3/uL (134-434); RBC 4.31 M/mm3 (3.60-5.2); RDW 14.1 % (11.6-15.6)
[2023-01-24 08:55] LABS: POTASSIUM 3.9 mmol/L (3.5-5.1)
[2023-01-24 09:01] LABS: CALCIUM 8.5 mg/dL (8.5-10.1)
[2023-01-24 09:02] LABS: ALBUMIN 3.1 g/dl (3.4-5.0); BLOOD UREA NITROGEN 16.6 mg/dL (7-18)
[2023-01-24 09:03] LABS: CREATININE 0.6 mg/dL (0.55-1.3)
[2023-01-24 09:06] LABS: BILIRUBIN,TOTAL 0.5 mg/dL (0.2-1); TOT PROT 6.1 g/dl (6.4-8.2)
[2023-01-24 09:11] LABS: ANISOCYTOSIS 0; HELMET CELLS 0; HOWELL-JOLLY BODIES 0; MACROCYTOSIS 0; OVALOCYTE 0; ROULEAU 0; SICKELED CELLS 0; TARGET CELLS 0; TEAR DROP CELLS 0; TOXIC GRANULATION 0
[2023-01-24] MEDS ORDERED: PNEUMOC 20-VAL CONJ-DIP CRM/PF 0.5 ML SYRINGE IM ONE (10:12)
[2023-01-24] MEDS: metoPROLOL SUCCINATE 25 MG TAB.SR.24H (FP) PO SCH (10:35)
[2023-01-24] MEDS: ENOXAPARIN NA (PORCINE) 40 MG/0.4 ML DISP.SYRIN SQ SCH (10:36)
[2023-01-24] MEDS ORDERED: REMDESIVIR 100 MG in SODIUM CHLORIDE 250 ML IVPB SCH (15:00)
[2023-01-24] MEDS ORDERED: ACETAMINOPHEN 1000 MG/100 ML BAG IVPB ONE (19:10)
[2023-01-24] MEDS ORDERED: ACETAMINOPHEN 325 MG TABLET (FP) PO ONE (19:31)
[2023-01-24] MEDS ORDERED: ACETAMINOPHEN 325 MG TABLET (FP) PO PRN (22:07)
[2023-01-24] MEDS: ATORVASTATIN CA 10 MG TABLET (FP) PO SCH (23:12)
[2023-01-25] MEDS: ENOXAPARIN NA (PORCINE) 40 MG/0.4 ML DISP.SYRIN SQ SCH (09:27)
[2023-01-25] MEDS: metoPROLOL SUCCINATE 25 MG TAB.SR.24H (FP) PO SCH ×2 (09:31→09:33)
[2023-01-25] MEDS ORDERED: REMDESIVIR 100 MG in SODIUM CHLORIDE 250 ML IVPB SCH (10:00)
[2023-01-25 11:07] VITALS: BP 103/58; PULSE 67; TEMP 98.3
== END 2023-01-25 01:15 | disposition home or self-care (01) | DRG 179 ==
LOC: JERFT 10:07 → JER 10:07 → JERBED 14:52 → J8W 01-24 08:37 → OBSVTOIN 01-24 15:11
PROVIDERS: ADMIT Internal Medicine; ATTEND Nurse Practitioner Acute Care
PROC: XW033E5 Introduction of Remdesivir Anti-infective into Peripheral Vein, Percutaneous Approach, New Technology Group 5 (ICD-10-PCS; principal; 2023-01-23)
DX: U07.1 COVID-19 (principal); I10 Essential (primary) hypertension; E78.5 Hyperlipidemia, unspecified; H40.9 Unspecified glaucoma; J02.9 Acute pharyngitis, unspecified
CPT/HCPCS: 0241U-QW; 36415; 71045-TC-FY; 80053; 83605; 84484; 85025; 86140; 87040; 93005; 93010; 94761; 97116-GP; 97161-GP; 99285-25; C9399; G0378

== ENCOUNTER 2023-03-11 04:13 | Day surgery (SDC) | payer OTHER ==
[2023-03-07 16:45] VITALS: BMI 23.2
[~2023-03-11 04:13] MED LIST: LIDOCAINE HCL 1%, 10 MG/ML (20ML VIAL) INF ONE
[2023-03-11] MEDS ORDERED: SODIUM CHLORIDE 0.9% P/F 10 ML VIAL IJ ONE (08:42)
[2023-03-11] MEDS ORDERED: MIDAZOLAM HCL 2 MG/2 ML SINGLE DOSE VIAL ONE (08:42)
[2023-03-11] MEDS ORDERED: DEXAMETHASONE SOD PHOSPHATE 4 MG/1 ML VIAL ONE (08:42)
[2023-03-11] MEDS ORDERED: ceFAZolin SODIUM 1 GM VIAL ONE (08:42)
[2023-03-11] MEDS ORDERED: ONDANSETRON 4 MG/2 ML VIAL ONE (08:42)
[2023-03-11] MEDS ORDERED: PROPOFOL 40 ML ONE ×2 (08:42→10:10)
[2023-03-11] MEDS ORDERED: LIDOCAINE HCL 1%, 10 MG/ML (20ML VIAL) ONE (08:54)
[2023-03-11] MEDS ORDERED: ceFAZolin SODIUM 1 GM VIAL IVPB ONE (09:40)
[2023-03-11] MEDS ORDERED: METHYLENE BLUE 50 MG/10 ML AMPUL ONE (09:41)
[2023-03-11] MEDS ORDERED: LIDOCAINE HCL 1%, 10 MG/ML (20ML VIAL) INF ONE ×3 (09:51→10:06)
[2023-03-11] MEDS ORDERED: ACETAMINOPHEN INJECTION 100 ML IVPB ONE (10:10)
[2023-03-11] MEDS ORDERED: METHYLENE BLUE 1% 10 MG/1 ML VIAL NR ONE (10:47)
[2023-03-11] MEDS ORDERED: oxyCODONE HCL 5 MG TABLET PO PRN (11:09)
[2023-03-11] MEDS ORDERED: LACTATED RINGERS SOLUTION 1,000 ML IV SCH (11:15)
[2023-03-11 13:52] VITALS: BP 94/56; PULSE 64; RESP 18; TEMP 98.2
== END 2023-03-11 13:55 | disposition home or self-care (01) ==
LOC: JASU-SURG 04:13
PROVIDERS: ATTEND Surgery
PROC: 0HBT0ZZ Excision of Right Breast, Open Approach (ICD-10-PCS; principal; 2023-03-11 09:00)
DX: C50.911 Malignant neoplasm of unspecified site of right female breast (principal)
CPT/HCPCS: 78195-TC; 88307-TC; 94760; A9541; Q9968

== ENCOUNTER 2023-04-08 04:13 | Day surgery (SDC) | payer OTHER ==
[2023-04-07 17:05] VITALS: BMI 23.2
[~2023-04-08 04:13] MED LIST changes: +LIDOCAINE 1% P/F 10 MG/ML VIAL INF ONE; -LIDOCAINE HCL 1%, 10 MG/ML (20ML VIAL) INF ONE; +ceFAZolin SODIUM 1 GM VIAL IVPB ONE
[2023-04-08] MEDS ORDERED: ONDANSETRON 4 MG/2 ML VIAL IVPUSH PRN (10:31)
[2023-04-08] MEDS ORDERED: oxyCODONE HCL 5 MG TABLET PO PRN (10:31)
[2023-04-08] MEDS ORDERED: LACTATED RINGERS SOLUTION 1,000 ML IV SCH (10:45)
[2023-04-08] MEDS ORDERED: ACETAMINOPHEN INJECTION 100 ML IVPB ONE (11:11)
[2023-04-08] MEDS ORDERED: FENTANYL CITRATE/PF 50 MCG/ML VIAL ONE ×2 (11:19→12:11)
[2023-04-08] MEDS ORDERED: MIDAZOLAM HCL 2 MG/2 ML SINGLE DOSE VIAL ONE (11:20)
[2023-04-08] MEDS ORDERED: ceFAZolin SODIUM 1 GM VIAL IVPB ONE (11:50)
[2023-04-08] MEDS ORDERED: LIDOCAINE 1% P/F 10 MG/ML VIAL INF ONE (12:03)
[2023-04-08 13:46] VITALS: RESP 20; TEMP 97.1
[2023-04-08 14:30] VITALS: BP 110/62; PULSE 65
== END 2023-04-08 14:42 | disposition home or self-care (01) ==
LOC: JASU-SURG 04:13
PROVIDERS: ATTEND Surgery
PROC: 0HBT0ZZ Excision of Right Breast, Open Approach (ICD-10-PCS; principal; 2023-04-08 11:30)
DX: C50.911 Malignant neoplasm of unspecified site of right female breast (principal)
CPT/HCPCS: 94760

== ENCOUNTER 2024-07-21 05:10 | Day surgery (SDC) | payer OTHER ==
[2024-07-16 13:10] VITALS: BMI 23.2
[2024-07-21] MEDS ORDERED: LIDOCAINE HCL 1%, 10 MG/ML (20ML VIAL) ONE (13:02)
[2024-07-21] MEDS: LIDOCAINE HCL 1%, 10 MG/ML (20ML VIAL) NR ONE ×3 (13:05→15:30)
[2024-07-21] MEDS: ceFAZolin SODIUM 1 GM VIAL IVPB ONE ×2 (13:05→15:15)
[2024-07-21] MEDS ORDERED: ETOMIDATE 20 MG/10 ML VIAL IVPUSH ONE (15:03)
[2024-07-21] MEDS ORDERED: PROPOFOL 20 ML ONE (15:04)
[2024-07-21] MEDS ORDERED: LACTATED RINGERS SOLUTION 1,000 ML IV SCH (16:15)
[2024-07-21 17:18] VITALS: RESP 18
[2024-07-21 18:32] VITALS: BP 129/72; PULSE 64; TEMP 97.7
== END 2024-07-21 18:15 | disposition home or self-care (01) ==
LOC: JASU-SURG 05:10
PROVIDERS: ATTEND Surgery
PROC: 0HBU0ZZ Excision of Left Breast, Open Approach (ICD-10-PCS; principal; 2024-07-21 12:30)
DX: C50.912 Malignant neoplasm of unspecified site of left female breast (principal)
CPT/HCPCS: 88307-TC; 88342-TC; 94760

== ENCOUNTER 2024-08-06 05:29 | Day surgery (SDC) | payer OTHER ==
[2024-08-04 10:44] VITALS: BMI 24.6
[2024-08-06] MEDS ORDERED: PROPOFOL 20 ML ONE (15:06)
[2024-08-06] MEDS ORDERED: LIDOCAINE HCL/PF 2% SDV 5ML VIAL ONE (15:06)
[2024-08-06] MEDS ORDERED: ceFAZolin SODIUM 1 GM VIAL ONE (15:36)
[2024-08-06] MEDS: LIDOCAINE HCL 1%, 10 MG/ML (20ML VIAL) NR ONE ×5 (15:44→16:03)
[2024-08-06] MEDS: LACTATED RINGERS SOLUTION 1,000 ML IV SCH (16:15)
[2024-08-06] MEDS ORDERED: ONDANSETRON 4 MG/2 ML VIAL IVPUSH PRN (17:01)
[2024-08-06 17:15] VITALS: RESP 18; TEMP 97.5
[2024-08-06 18:00] VITALS: BP 111/63; PULSE 77
== END 2024-08-06 17:55 | disposition home or self-care (01) ==
LOC: JASU-SURG 05:29
PROVIDERS: ATTEND Surgery
PROC: 0HBU0ZZ Excision of Left Breast, Open Approach (ICD-10-PCS; principal; 2024-08-06 15:45)
DX: C50.912 Malignant neoplasm of unspecified site of left female breast (principal); D05.02 Lobular carcinoma in situ of left breast; N60.92 Unspecified benign mammary dysplasia of left breast
CPT/HCPCS: 88307-TC; 88342-TC; 94760